=== PATIENT | male | born 1985 | race Caucasian/White ===

== ENCOUNTER 2023-04-26 09:34 | Outpatient (AMB) | payer OTHER, SELFPAY ==
--- NOTE | 2023-04-26 11:14 | MHC.OFFWIV ---
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 Allergies No Known Allergies Allergy (Verified 04/26/23 11:17) Do you need a note to return to daycare/school/sports/work: No HPI HPI Comments History of Present Illness Details This is a 38-year-old male who presents to the office today for sick visit. Patient complaining of sore throat x1 week as well as anterior neck swelling for the past several days. Patient states he started to develop a sore throat about 1 week ago. He then started to develop anterior neck swelling and pain several days ago. He states he feels as though there is something deep inside his throat. He denies any fevers or chills. He denies any difficulty swallowing. He denies any difficulty breathing. Review of Systems Const All systems reviewed & are unremarkable except as noted in HPI and below Reports no additional complaints Eyes Reports no additional complaints ENT Reports no additional complaints Card Reports no additional complaints Resp Reports no additional complaints GI Reports no additional complaints Reports no additional complaints Musc Reports no additional complaints Skin/Breast Reports system reviewed and no additional complaints, except as documented Neuro Reports no additional complaints Psych Reports no additional complaints Endo Reports no additional complaints Stan/Lymph Reports no additional complaints Aller/Immun Reports no additional complaints Physical Exam Const Other: Vital signs reviewed. Constitutional: Non-toxic appearing. No acute distress. Well-developed and well-nourished. HEENT: + Posterior pharyngeal erythema and patchy exudates. There is a large area of fluctuance located on his anterior neck. No surrounding erythema. No drainage. Skin: Warm and dry. No rashes or lesions noted. Neck: Full and painless range of motion. No cervical lymphadenopathy. Cardio: Regular rate. No lower extremity edema. No JVD. Pulmonary: No respiratory distress. No accessory muscle usage. Gastrointestinal: Soft, nontender, and nondistended in all 4 quadrants. Musculoskeletal: Normal range of motion in joints throughout the body. No deformity or other signs of injury. Neuro: Alert and oriented x4. Cranial nerves 2-12 grossly intact. No focal deficits appreciated. Psych: Normal mood and affect. Assessment & Plan Assessment & Plan (1) Neck swelling: Code(s): R22.1 - Localized swelling, mass and lump, neck Plan This is a 38-year-old male presenting to the office complaining of a sore throat and anterior neck swelling. On physical examination, patient has posterior pharyngeal erythema and patchy exudates. There is a large area of fluctuance located on his anterior neck consistent with a possible abscess of his neck or throat. I have sent patient to the emergency room for further evaluation with ultrasound, possible CT, and possible drainage. I spoke with [facility] ER triage and they are aware of patient's arrival presenting signs/symptoms. Patient and his verbalized her understanding and they are in agreement with the plan. Ambulance was offered to the patient but he declined and would prefer to try via private car. Patient is alert and oriented x4 and in my opinion, he has a medical competence to make his own medical decisions. Patient and his agree to proceed directly to the emergency room. Coding Level of Care Code New Pt Level 3 (16783) Diagnoses Neck swelling R22.1
[2023-04-26 11:18] VITALS: BP 114/72; PULSE 65; TEMP 36.8; O2SAT 99
== END 2023-04-26 11:53 | disposition home or self-care (01) ==
PROVIDERS: PCP Internal Medicine; Visit Provider Physician Assistant Medical
DX: J02.9 Acute pharyngitis, unspecified (principal); R22.1 Localized swelling, mass and lump, neck
CPT/HCPCS: 87880; 99051; 99203

== ENCOUNTER 2023-04-26 12:04 | Emergency (ER) | payer OTHER, SELFPAY ==
--- NOTE | ~2023-04-26 | CT_ITS ---
EXAMINATION: CT SOFT TISSUE NECK WITH CONTRAST CLINICAL INFORMATION: ? Abscess COMPARISON: None available. TECHNIQUE: Following the intravenous administration of 60 mL of Omnipaque 350 intravenous contrast, helical imaging was performed in the axial plane with generation of coronal and sagittal reformatted images. This CT examination was performed using dose optimization techniques as appropriate, variously including the following: *Automated exposure control *Adjustment of mA and/or kV according to patient size (this includes techniques or standardized protocols for targeted exams where dose is matched to indication/reason for exam; i.e. extremities or head) *Use of iterative reconstruction technique DLP: 392 mGy-cm FINDINGS: There is a fluid collection in the submental soft tissues with thick enhancing capsule. This collection measures 3.8 x 1.7 x 5.2 cm. There is mild surrounding subcutaneous inflammatory stranding. Multiple prominent subcentimeter bilateral level Ia, II and III lymph nodes including a 0.7 cm right level Ia node. Multiple maxillary and mandibular teeth are missing. Multifocal periapical lucencies involving multiple mandibular and maxillary teeth with associated multifocal erosion of the buccal surface. Multifocal dental caries. The nasopharynx, oropharynx, hypopharynx, and laryngeal structures are unremarkable. The parotid, submandibular, and thyroid glands are unremarkable. The visualized orbits are unremarkable. Mucosal thickening of the right maxillary sinus. Mastoid air cells are clear. The visualized vasculature of the neck are unremarkable. The visualized portions of the brain are unremarkable. No acute osseous abnormality. No lytic or blastic osseous lesions. Multifocal tree-in-bud is opacification scattered through the partially imaged right upper lobe. The partially imaged left lung is clear. CT/CT soft tissue neck w IV con IMPRESSION: -5.2 cm submental fluid collection with surrounding subcutaneous inflammatory stranding concerning for an abscess. Subcentimeter cervical lymphadenopathy as described above, likely reactive. -Multifocal periapical lucencies involving multiple mandibular and maxillary teeth with associated multifocal erosion of the peduncle surfaces. Multifocal dental caries.
--- NOTE | ~2023-04-26 | XR_ITS ---
EXAMINATION: XR CHEST CLINICAL INFORMATION: Cough COMPARISON: None available. TECHNIQUE: 2 views of the chest were obtained. FINDINGS: No significant abnormality is noted involving the heart, lungs, mediastinum, bony thorax or soft tissues. XR/XR chest 2V IMPRESSION: Unremarkable examination.
[2023-04-26 12:36] VITALS: BP 143/76; PULSE 71; RESP 18; TEMP 36.8; O2SAT 98
[2023-04-26 12:43] VITALS: BP 143/96; PULSE 71; RESP 18; TEMP 36.8; O2SAT 98; BMI 21.0
--- NOTE | 2023-04-26 13:08 | ED.GENADULT ---
HPI - General Adult General Chief complaint: Skin/Abscess/Foreign Body Stated complaint: abscess Time Seen by Provider: 04/26/23 12:42 Source: patient Mode of arrival: ambulatory Limitations: no limitations History of Present Illness HPI narrative: Patient is a 38-year-old male presenting to emergency department with complaint of painful abscess to his throat for the past several days. Denies any drainage from the area. States increased in size and tenderness over the last 1-2 days. Also complains of productive cough for the past week and sore throat. Denies any ear pain. Denies fevers. Denies any difficulty swallowing or eating. MD complaint: Mass on throat Onset (ago): day(s) Severity: moderate Quality: aching Pain Consistency: constant Relieving factors: none Exacerbating factors: none Associated symptoms: cough and other (sore throat) Treatments prior to arrival: none Related Data Home Medications Medication Instructions Recorded Confirmed No Known Home Meds 04/26/23 04/26/23 Allergies Allergy/AdvReac Type Severity Reaction Status Date / Time No Known Allergies Allergy Verified 04/26/23 11:17 Review of Systems Review of Systems: As per HPI. Yes all other systems are reviewed and are negative Constitutional: Constitutional: Reports as per HPI [facility] Social History Social History Advance Directives: No Advance Directives Information Provided: No Physical Exam ED Vital Signs: Vital Signs - 24 hr 04/26/23 12:36 04/26/23 12:43 04/26/23 14:53 Temperature 98.3 F 98.3 F 98.4 F Pulse Rate 71 71 60 Respiratory Rate 18 18 18 Blood Pressure 143/76 H 143/96 H 114/62 Pulse Oximetry 98 98 100 Oxygen Delivery Method Room Air Room Air Room Air BMI result Body Mass Index 21.0 Vital signs have been reviewed and appear to be correct. Blood pressure mildly elevated. Heart rate normal. Respiratory rate normal. Temperature normal. Oxygen saturation normal. Const General: cooperative, healthy appearing and no acute distress Orientation/consciousness: oriented to person, oriented to place, oriented to time and patient oriented x3 Limitations: no limitations HENMT Head: Yes normocephalic and Yes atraumatic Ears: external ears normal General nose exam: Normal external nose present Face and sinus: Yes face symmetric Mouth: oropharynx normal and moist mucous membranes Throat: Yes posterior oropharynx normal, Yes uvula midline, No peritonsillar mass, No uvular edema and Yes cobblestoning Eyes Pupils: Equal, round and reactive pupils present Neck Other: fluctant erythematous mass to anterior neck Neck: Yes normal visual inspection and Yes supple Lymphatic: no lymphadenopathy noted Neck images: 1. erythema, fluctuance Resp Effort & Inspection: normal respiratory effort and able to speak in complete sentences Auscultation: clear to auscultation bilaterally Cardio Rate: regular rate Rhythm: regular rhythm Heart sounds: S1 normal heart sound present and S2 normal heart sound present GI Palpation (GI): Soft to palpation and nontender Auscultation: normoactive bowel sounds General: Yes no CVA tenderness Back/Spine/Pelvis Back: no CVA tenderness Skin General skin exam: elasticity normal and turgor normal Neuro General: oriented to person, oriented to place, oriented to time, patient oriented x3, moves all extremities, no focal motor deficits and CN's II-XI intact bilaterally Cranial nerves: Yes Equal, round and reactive pupils present Cognition (Neuro): normal cognition Extrem General: Yes full ROM, Yes no pedal edema and Yes no calf tenderness Psych Mental Status: mental status grossly normal Affect: normal affect Thought process: Normal thought process present Medications Administered Generic Name Dose Route Start Last Admin Trade Name Freq PRN Reason Stop Dose Admin Vancomycin HCl 1,500 mg/ 500 mls @ 333.333 mls/hr 04/26/23 17:25 04/26/23 17:54 Sodium Chloride IV 04/26/23 18:54 333.33 mls/hr ONCE ONE Administration Discontinued Medications Generic Name Dose Route Start Last Admin Trade Name Freq PRN Reason Stop Dose Admin Piperacillin Sod/Tazobactam 50 mls @ 100 mls/hr 04/26/23 17:03 04/26/23 17:55 Sod 3.375 gm/ Sodium Chloride IV 04/26/23 17:32 Infused ONCE ONE Infusion Iohexol 100 ml 04/26/23 15:25 04/26/23 15:26 Iohexol 350 Mg/Ml 100 Ml Infus..Btl IV 04/26/23 15:26 60 ml ONCE ONE Administration Medical Decision Making Medical Decision Making MDM Narrative: Patient is a 38-year-old male presenting to emergency department with complaint of painful abscess to his throat for the past several days. On exam patient is awake, A+Ox3, VS WNL, afebrile, normal neurological exam without focal deficits, physical exam findings as above. Patient managing secretions, no difficulty speaking, voice not muffled, no trismus. Given reported symptoms and physical exam findings, initial differential includes abscess, mass/malignancy, strep pharyngitis, viral pharyngitis, bronchitis, pneumonia, viral upper respiratory infection. Labs notable for mild leukocytosis, mild anemia, no electrolyte abnormalities, negative COVID, flu, strep. X-ray chest unremarkable. CT soft tissue neck shows 5.2 cm submental fluid collection with surrounding subcutaneous inflammatory stranding concerning for an abscess, subcentimeter cervical lymphadenopathy likely reactive, addendum notes mod I focal tree-in-bud opacifications scattered through the partially imaged right upper lobe which could represent infection/inflammation. My interpretation is in agreement with the radiologist's interpretation. IV Zosyn and Vanco ordered. Consulted Dr. Valadez from general surgery to advises patient needs ENT. Call out to [facility] to discuss transfer. 18:00 [facility] and [facility] unable to accept transfer, spoke with Kate from transfer line at who is reaching out to ENT. 18:23 [facility] will accept patient as ED to ED transfer, Dr. Adan is accepting MD. Images uploaded. Patient updated on plan. Differential Diagnosis Differential Diagnoses: The differential diagnosis associated with the presentation includes As per MDM. Admission/Observation Consideration of admission/observation: Escalation of care including admission/observation considered Consult Healthcare Provider Management of the patient was discussed with: [employer]um[employer] (Dr. Valadez) Lab Data [facility] Lab Attestation statement: I reviewed the patient's lab results. As per MDM. 04/26/23 14:39 04/26/23 14:39 Labs: Lab Results 04/26/23 04/26/23 Range/Units 13:23 14:39 WBC 11.7 H (4.8-10.8) X10*3/uL RBC 4.20 L (4.60-5.80) X10*6/uL Hgb 12.7 L (14.0-18.0) g/dl Hct 37.6 L (42.0-52.0) % MCV 89.5 (80.0-98.0) fL MCH 30.2 (27.0-33.0) pg MCHC 33.8 (31.0-36.0) g/dl RDW 11.9 (11.0-16.0) % Plt Count 356 (160-400) X10*3/uL MPV 8.3 L (9.4-12.4) fL Immature Gran % (Auto) 0.3 (0.0-0.4) % Neut % (Auto) 72.8 (45-73) % Lymph % (Auto) 18.2 L (20-40) % [place] % (Auto) 5.8 (2-11) % Eos % (Auto) 2.4 (0-4) % Baso % (Auto) 0.5 (0-2) % Lymph # (Auto) 2.1 (1.2-4.9) X10*3/uL [place] # (Auto) 0.7 (0.1-1.2) X10*3/uL Eos # (Auto) 0.3 (0.0-0.4) X10*3/uL Baso # (Auto) 0.1 (0.0-0.2) X10*3/uL Abs Immat Gran (auto) 0.03 (0.00-0.03) X10*3/uL Absolute Neuts (auto) 8.5 H (2.0-8.3) x10*3/uL Absolute Nucleated RBC 0.000 (0.0-0.012) X10*3/uL Nucleated RBC % (auto) 0.0 (0.0-0.2) /100WBC Sodium 140 (135-145) mmol/L Potassium 4.5 (3.3-5.1) mmol/L Chloride 104 (96-108) mmol/L Carbon Dioxide 27 (22-29) mmol/L Anion Gap 14 (12-20) BUN 14 (9-16) mg/dL Creatinine 0.67 (0.5-1.4) mg/dL Estim Creat Clear Calc 150.1 Estimated GFR > 60 Random Glucose 91 (60-115) mg/dL Calcium 9.2 (8.4-10.2) mg/dL COVID-19 (MARITZA) Negative (Negative) COVID-19 Clin Com See Note Influenza Type A (KENDALL) Negative (Negative) Influenza Type B (KENDALL) Negative (Negative) Influenza A & B Note See Note S. pyogenes GrpA KENDALL Negative (Negative) Independent Interpretation I performed an independent interpretation of an: Plain X-Ray and CT Scan Interpretation: Unremarkable chest x-ray, CT soft tissue neck shows 5.2 cm fluid collection with stranding concerning for an abscess Radiology Impression Discussion of test interpretation with radiology: I have reviewed the radiologist's reading. Radiologist Impression: CT/CT soft tissue neck w IV con IMPRESSION: -5.2 cm submental fluid collection with surrounding subcutaneous inflammatory stranding concerning for an abscess. Subcentimeter cervical lymphadenopathy as described above, likely reactive. -Multifocal periapical lucencies involving multiple mandibular and maxillary teeth with associated multifocal erosion of the peduncle surfaces. Multifocal dental caries. XR/XR chest 2V IMPRESSION: Unremarkable examination. External Record Review External record reviewed: Inpatient record, Office record and Outpatient record Prescription Management I considered prescription management with: Antibiotic Critical Care Time Critical Care Time Critical Care Time: Yes Total Critical Care Time: 45 Attestation: I have personally provided critical care time exclusive of time spent on separately billable procedures. Time includes review of lab data, radiology results, discussion with consultants, and monitoring for potential decompensation. Intervention performed as documented. Discharge Plan Discharge Clinical Impression: Abscess of neck Patient Disposition: [facility] Transfer Details: ED to ED transfer to [facility], Dr. Adan accepting Prescriptions: No Action No Known Home Meds
[2023-04-26 13:36] LABS: IDNOW Serial# 08D9AD1C; Strep A Nucleic Acid Negative (Negative)
[2023-04-26 13:44] LABS: COVID-19 Test Negative (Negative); IDNOW Serial# 55D5AD1C
[2023-04-26 13:47] LABS: IDNOW Serial# 6674DD1D; Influenza A Negative (Negative); Influenza B2 Negative (Negative)
[2023-04-26 14:45] LABS: MANUAL DIFF FLAG NO
[2023-04-26 14:46] LABS: Basophils Absolute Auto 0.1 X10*3/uL (0.0-0.2); Basophils Percent Auto 0.5 % (0-2); Eosinophils Absolute Auto 0.3 X10*3/uL (0.0-0.4); Eosinophils Percent Auto 2.4 % (0-4); Hematocrit 37.6 % (42.0-52.0); Hemoglobin 12.7 g/dl (14.0-18.0); Imm Gran Abs Auto 0.03 X10*3/uL (0.00-0.03); Imm Gran Pct Auto 0.3 % (0.0-0.4); Lymphocytes Absolute Auto 2.1 X10*3/uL (1.2-4.9); Lymphocytes Percent Auto 18.2 % (20-40); Mean Corpuscular HGB Conc 33.8 g/dl (31.0-36.0); Mean Corpuscular Hemoglobin 30.2 pg (27.0-33.0); Mean Corpuscular Volume 89.5 fL (80.0-98.0); Mean Platelet Volume 8.3 fL (9.4-12.4); Monocytes Absolute Auto 0.7 X10*3/uL (0.1-1.2); Monocytes Percent Auto 5.8 % (2-11); Neutrophils Absolute Auto 8.5 x10*3/uL (2.0-8.3); Neutrophils Percent Auto 72.8 % (45-73); Platelet Count 356 X10*3/uL (160-400); Red Cell Distribution Width 11.9 % (11.0-16.0); White Blood Count 11.7 X10*3/uL (4.8-10.8)
[2023-04-26 14:53] VITALS: BP 114/62; PULSE 60; RESP 18; TEMP 36.9; O2SAT 100
[2023-04-26 14:59] LABS: Anion Gap 14 (12-20); Blood Urea Nitrogen 14 mg/dL (9-16); Calcium 9.2 mg/dL (8.4-10.2); Carbon Dioxide 27 mmol/L (22-29); Chloride 104 mmol/L (96-108); Creatinine Clr Calc Pharmacy 150.1; Estimated Glomerular Filt Rate > 60; Glucose Random 91 mg/dL (60-115); Potassium 4.5 mmol/L (3.3-5.1); Sodium 140 mmol/L (135-145)
[2023-04-26] MEDS: iohexoL 350 MG/ML 100 ML INFUS..BTL IV (15:26)
[2023-04-26] MEDS: Piperacillin Sodium/Tazobactam 3.375 GM in 0.9 % Sodium Chloride 50 ML IV (17:22)
[2023-04-26] MEDS: vancomycin HCL 1,500 MG in 0.9 % Sodium Chloride 500 ML 333.33 MG IV (17:54)
[2023-04-26 19:28] VITALS: BP 138/93; PULSE 60; RESP 18; TEMP 37.2; O2SAT 98
== END 2023-04-26 20:21 | disposition short-term general hospital (02) ==
PROVIDERS: Registered Nurse Emergency; Emergency Provider Emergency Medicine
DX: L02.11 Cutaneous abscess of neck (principal); R59.0 Localized enlarged lymph nodes; R91.8 Other nonspecific abnormal finding of lung field; J39.1 Other abscess of pharynx; R05.9 Cough, unspecified; K02.9 Dental caries, unspecified; Z11.52 Encounter for screening for COVID-19; R07.0 Pain in throat
CPT/HCPCS: 36415; 70491; 71046; 80048; 85025; 87502; 87635; 87651; 96365; 96366; 96367; 99285; J2543; J3371; Q9967